=== PATIENT | female | born 1995 | race Caucasian/White ===

== ENCOUNTER 2021-02-26 10:51 | Emergency (ER) | payer OTHER, SELFPAY ==
--- NOTE | ~2021-02-26 | US_ITS ---
EXAMINATION: US PELVIC AND TRANSVAGINAL US PELVIC OVARIAN DOPPLER CLINICAL INFORMATION: 25-year-old female with pelvic pain. Evaluate for ovarian torsion. Right-sided pain. History of Mirena IUD placement in 2017. The last menstrual period was from 02/12/2021 through 02/17/2021. Prior section. COMPARISON: None TECHNIQUE: Ultrasound of the pelvis is performed using both transabdominal and transvaginal transducers along with Doppler. Transvaginal imaging is performed in order to better are visualize and evaluate the ovaries. FINDINGS: Uterus: The anteflexed, anteverted uterus measures 6.2 x 3.7 x 5.4 cm (cervix to fundus x AP x transverse dimensions). The myometrial echotexture is normal. No evidence of leiomyoma. The endometrium measures up to 0.8 cm AP and has normal echotexture. The contraceptive device is positioned within the lower uterine segment and endocervical canal. The proximal tip of the device is located approximately 2.5 cm from the upper margin of the fundal endometrium. Adnexa: The ovaries have normal size and echotexture. The right ovary measures 4.1 x 2.8 x 2.6 cm, volume of 15.6 mL. It has a dominant follicle that measures up to 2.3 cm. The left ovary measures 3.1 x 1.9 x 1.6 cm, volume of 5 mL. Color Doppler images with spectral waveforms show presence of normal arterial and venous flow within each ovary. Free fluid: Small, physiologic amount of free fluid is seen. US/US pelvic ovarian doppler IMPRESSION: * The ovaries are normal. No ovarian mass or torsion. * The IUD is relatively low in position. It is seen within the lower uterine segment and endocervical canal.
--- NOTE | ~2021-02-26 | US_ITS ---
EXAMINATION: US PELVIC AND TRANSVAGINAL US PELVIC OVARIAN DOPPLER CLINICAL INFORMATION: 25-year-old female with pelvic pain. Evaluate for ovarian torsion. Right-sided pain. History of Mirena IUD placement in 2017. The last menstrual period was from 02/12/2021 through 02/17/2021. Prior section. COMPARISON: None TECHNIQUE: Ultrasound of the pelvis is performed using both transabdominal and transvaginal transducers along with Doppler. Transvaginal imaging is performed in order to better are visualize and evaluate the ovaries. FINDINGS: Uterus: The anteflexed, anteverted uterus measures 6.2 x 3.7 x 5.4 cm (cervix to fundus x AP x transverse dimensions). The myometrial echotexture is normal. No evidence of leiomyoma. The endometrium measures up to 0.8 cm AP and has normal echotexture. The contraceptive device is positioned within the lower uterine segment and endocervical canal. The proximal tip of the device is located approximately 2.5 cm from the upper margin of the fundal endometrium. Adnexa: The ovaries have normal size and echotexture. The right ovary measures 4.1 x 2.8 x 2.6 cm, volume of 15.6 mL. It has a dominant follicle that measures up to 2.3 cm. The left ovary measures 3.1 x 1.9 x 1.6 cm, volume of 5 mL. Color Doppler images with spectral waveforms show presence of normal arterial and venous flow within each ovary. Free fluid: Small, physiologic amount of free fluid is seen. US/US pelvic and transvaginal IMPRESSION: * The ovaries are normal. No ovarian mass or torsion. * The IUD is relatively low in position. It is seen within the lower uterine segment and endocervical canal.
[2021-02-26 11:34] VITALS: BP 120/73; PULSE 58; RESP 16; TEMP 36.7; O2SAT 98; BMI 20.6
--- NOTE | 2021-02-26 12:19 | ED.ABDPAIN ---
HPI - Abdominal Pain General Chief Complaint: Abdominal Pain <RONALD Jensen - Last Filed: 02/26/21 14:46> Stated Complaint: ABD PAIN <RONALD Jensen - Last Filed: 02/26/21 14:46> Time Seen by Provider: 02/26/21 12:12 <RONALD Jensen Last Filed: 02/26/21 14:46> Source: patient <RONALD Jensen - Last Filed: 02/26/21 14:46> Mode of arrival: ambulatory <RONALD Jensen - Last Filed: 02/26/21 14:46> Limitations: no limitations <RONALD Jensen Last Filed: 02/26/21 14:46> History of Present Illness HPI narrative: 25 y/o female presenting with right sided pelvic pain on/off for the last 2-3 months but acutely worsened this morning. She reports pain is severe and cramping, located below her scar. She had a Mirena placed in Apr 2017 and is worried it may have migrated. She last had her menstrual period 02/11-02/17. Since Mirena placement her menses has been heavy and regular. She denies chance of . She denies vaginal discharge, fever, chills, N/V/D. She states when she went to get up out of bed her pain was so severe she collapsed to the ground and cried in pain. <RONALD Jensen - Last Filed: 02/26/21 14:46> MD elicited complaint: abdominal pain <RONALD Jensen - Last Filed: 02/26/21 14:46> Pertinent past history: none <RONALD Jensen - Last Filed: 02/26/21 14:46> Onset (ago): hour(s) <RONALD Jensen - Last Filed: 02/26/21 14:46> Pain Consistency: intermittent <RONALD Jensen Last Filed: 02/26/21 14:46> Location: suprapubic and pelvis <RONALD Jensen - Last Filed: 02/26/21 14:46> Severity: moderate <RONALD Jensen - Last Filed: 02/26/21 14:46> Pain scale (0-10): 7 <RONALD Jensen - Last Filed: 02/26/21 14:46> Quality: stabbing and aching <RONALD Jensen - Last Filed: 02/26/21 14:46> Radiation: none <RONALD Jensen - Last Filed: 02/26/21 14:46> Migration to: no migration <RONALD Jensen - Last Filed: 02/26/21 14:46> Exacerbating factors: movement <RONALD Jensen - Last Filed: 02/26/21 14:46> Relieving factors: nothing <RONALD Jensen - Last Filed: 02/26/21 14:46> Context: history of similar episodes <RONALD Jensen - Last Filed: 02/26/21 14:46> Associated symptoms: denies other symptoms <RONALD Jensen - Last Filed: 02/26/21 14:46> Related Data Date of Last Menstrual Period: 02/11/21 <RONALD Jensen - Last Filed: 02/26/21 14:46> Patient : No <RONALD Jensen Last Filed: 02/26/21 14:46> Allergies/Adverse Reactions: Allergies Allergy/AdvReac Type Severity Reaction Status Date / Time No Known Allergies Allergy Verified 02/26/21 11:34 <RONALD Jensen - Last Filed: 02/26/21 14:46> Review of Systems Review of Systems Constitutional: No Fever, No Chills ENT/Mouth: No sore throat, No Rhinorrhea, No Swallowing Difficulty Cardiovascular: No Chest Pain, No SOB, No Orthopnea, No Edema Respiratory: No Cough, No Sputum, No Wheezing, No dyspnea Gastrointestinal: No Nausea, No Vomiting, No Diarrhea, + abdominal Pain Genitourinary: No Dysuria, No Urinary Frequency, No Hematuria Musculoskeletal: No joint pain, No Myalgias Skin: No Skin Lesions, No rash Neuro: No Weakness, No Numbness, No Dizziness, No Headache Heme/Lymph: No Bruising, No Lymphadenopathy <RONALD Jensen Last Filed: 02/26/21 14:46> Physical Exam Vital Signs: Vital Signs: Last Vital Signs Temp 98.1 F 02/26/21 11:34 Pulse 50 02/26/21 14:19 Resp 14 02/26/21 14:19 BP 98/52 L 02/26/21 14:22 Pulse Ox 100 02/26/21 14:19 Body Mass Index 20.6 <RONALD Jensen - Last Filed: 02/26/21 14:46> Vital Signs: Last Vital Signs Temp 98.1 F 02/26/21 11:34 Pulse 50 02/26/21 14:19 Resp 14 02/26/21 14:19 BP 98/52 L 02/26/21 14:22 Pulse Ox 100 02/26/21 14:19 Body Mass Index 20.6 <RONALD Dowd - Last Filed: 02/26/21 16:35> Appearance: Alert. Oriented X3. No acute distress. Eyes: Pupils equal, round and reactive to light. ENT: Pharynx normal. Neck: Normal inspection. Neck supple. CVS: Normal heart rate and rhythm. Pulses normal. Respiratory: No respiratory distress. Breath sounds normal. Abdomen: well healed scar. tenderness below the scar in the right side, no rebound or guarding. pelvic exam deferred for now. Skin: Skin warm and dry. Normal skin color. Normal skin turgor. No rashes. Extremities: No lower extremity edema. Neuro: Oriented X 3. Nonfocal <RONALD Jensen - Last Filed: 02/26/21 14:46> Course Course Course Narrative: 25-year-old female with history of Mirena placement about 4 years ago who is presenting to the ER with right-sided pelvic pain she thinks is related to her Mirena. She just had her menstrual period 2 weeks ago. She denies . Will get blood workup, UA, test, and pelvic ultrasound for further evaluation of her Mirena. She would like to hold off on pelvic exam until the ultrasound is completed and and her pain is better controlled. P.r.n. Vicodin has been ordered and will reassess. <RONALD Jensen - Last Filed: 02/26/21 14:46> MDM - Abdominal Pain Lab Data Result diagrams: : 02/26/21 12:33 02/26/21 12:33 <RONALD Jensen - Last Filed: 02/26/21 14:46> Labs: Lab Results 02/26/21 02/26/21 02/26/21 Range/Units 12:33 12:33 14:21 WBC 10.4 (4.8-10.8) X10*3/uL RBC 4.14 L (4.20-5.50) X10*6/uL Hgb 12.4 (12.0-16.0) g/dl Hct 37.6 (37-47) % MCV 90.8 (80-98) fL MCH 30.0 (27.0-33.0) pg MCHC 33.0 (31.0-35.0) g/dl RDW 12.0 (11.0-16.0) % Plt Count 214 (160-400) X10*3/uL MPV 10.0 (9.4-12.3) fL Immature Gran % (Auto) 0.1 (0.0-0.4) % Neut % (Auto) 67.0 (45-73) % Lymph % (Auto) 24.3 (20-40) % [place] % (Auto) 6.4 (2-11) % Eos % (Auto) 2.0 (0-4) % Baso % (Auto) 0.2 (0-2) % Lymph # (Auto) 2.5 (1.2-4.9) X10*3/uL [place] # (Auto) 0.7 (0.1-1.2) X10*3/uL Eos # (Auto) 0.2 (0.0-0.4) X10*3/uL Baso # (Auto) 0.0 (0.0-0.2) X10*3/uL Abs Immat Gran (auto) 0.01 (0.00-0.03) X10*3/uL Absolute Neuts (auto) 7.0 (2.0-8.3) X10*3/uL Absolute Nucleated RBC 0.000 (0.0-0.012) X10*3/uL Nucleated RBC % (auto) 0.0 (0.0-0.2) /100WBC Sodium 140 (135-145) mmol/L Potassium 4.3 (3.3-5.1) mmol/L Chloride 107 (96-108) mmol/L Carbon Dioxide 27 (22-29) mmol/L Anion Gap 10 L (12-20) BUN 10 (9-16) mg/dL Creatinine 0.73 (0.5-1.4) mg/dL Estim Creat Clear Calc 102.8 Estimated GFR > 60 Random Glucose 98 (60-115) mg/dL Calcium 9.2 (8.4-10.2) mg/dL Magnesium 2.1 (1.6-2.6) mg/dL Total Bilirubin 0.9 (0.0-1.0) mg/dL Direct Bilirubin 0.4 (0.0-0.5) mg/dL AST 16 (5-31) U/L ALT 9 (0-31) U/L Alkaline Phosphatase 48 (39-117) U/L Total Protein 6.6 (6.5-8.0) g/dL Albumin 4.4 (3.5-5.0) g/dL Urine Color YELLOW Urine Appearance HAZY Urine pH 6.0 (5.0-8.0) Ur Specific [place] >= 1.030 H (1.005-1.025) Urine Protein 1+ H (NEG-TRACE) MG/DL Urine Glucose (UA) NEG (NEG) MG/DL Urine Ketones 5 (NEG) MG/DL Urine Blood NEG (NEG) Urine Nitrite NEG (NEG) Ur Leukocyte Esterase 1+ H (NEG) Urine RBC 0-2 (0) /HPF Urine WBC 5-9 H (0-4) /HPF Ur Squamous Epith Cells 3+ /LPF Urine Bacteria NONE /LPF Urine Mucus 3+ /LPF Urine Test (NEGATIVE) 02/26/21 Range/Units 14:21 WBC (4.8-10.8) X10*3/uL RBC (4.20-5.50) X10*6/uL Hgb (12.0-16.0) g/dl Hct (37-47) % MCV (80-98) fL MCH (27.0-33.0) pg MCHC (31.0-35.0) g/dl RDW (11.0-16.0) % Plt Count (160-400) X10*3/uL MPV (9.4-12.3) fL Immature Gran % (Auto) (0.0-0.4) % Neut % (Auto) (45-73) % Lymph % (Auto) (20-40) % [place] % (Auto) (2-11) % Eos % (Auto) (0-4) % Baso % (Auto) (0-2) % Lymph # (Auto) (1.2-4.9) X10*3/uL [place] # (Auto) (0.1-1.2) X10*3/uL Eos # (Auto) (0.0-0.4) X10*3/uL Baso # (Auto) (0.0-0.2) X10*3/uL Abs Immat Gran (auto) (0.00-0.03) X10*3/uL Absolute Neuts (auto) (2.0-8.3) X10*3/uL Absolute Nucleated RBC (0.0-0.012) X10*3/uL Nucleated RBC % (auto) (0.0-0.2) /100WBC Sodium (135-145) mmol/L Potassium (3.3-5.1) mmol/L Chloride (96-108) mmol/L Carbon Dioxide (22-29) mmol/L Anion Gap (12-20) BUN (9-16) mg/dL Creatinine (0.5-1.4) mg/dL Estim Creat Clear Calc Estimated GFR Random Glucose (60-115) mg/dL Calcium (8.4-10.2) mg/dL Magnesium (1.6-2.6) mg/dL Total Bilirubin (0.0-1.0) mg/dL Direct Bilirubin (0.0-0.5) mg/dL AST (5-31) U/L ALT (0-31) U/L Alkaline Phosphatase (39-117) U/L Total Protein (6.5-8.0) g/dL Albumin (3.5-5.0) g/dL Urine Color Urine Appearance Urine pH (5.0-8.0) Ur Specific [place] (1.005-1.025) Urine Protein (NEG-TRACE) MG/DL Urine Glucose (UA) (NEG) MG/DL Urine Ketones (NEG) MG/DL Urine Blood (NEG) Urine Nitrite (NEG) Ur Leukocyte Esterase (NEG) Urine RBC (0) /HPF Urine WBC (0-4) /HPF Ur Squamous Epith Cells /LPF Urine Bacteria /LPF Urine Mucus /LPF Urine Test NEGATIVE (NEGATIVE) <RONALD Jensen - Last Filed: 02/26/21 14:46> Lab Results 02/26/21 02/26/21 02/26/21 Range/Units 12:33 12:33 14:21 WBC 10.4 (4.8-10.8) X10*3/uL RBC 4.14 L (4.20-5.50) X10*6/uL Hgb 12.4 (12.0-16.0) g/dl Hct 37.6 (37-47) % MCV 90.8 (80-98) fL MCH 30.0 (27.0-33.0) pg MCHC 33.0 (31.0-35.0) g/dl RDW 12.0 (11.0-16.0) % Plt Count 214 (160-400) X10*3/uL MPV 10.0 (9.4-12.3) fL Immature Gran % (Auto) 0.1 (0.0-0.4) % Neut % (Auto) 67.0 (45-73) % Lymph % (Auto) 24.3 (20-40) % [place] % (Auto) 6.4 (2-11) % Eos % (Auto) 2.0 (0-4) % Baso % (Auto) 0.2 (0-2) % Lymph # (Auto) 2.5 (1.2-4.9) X10*3/uL [place] # (Auto) 0.7 (0.1-1.2) X10*3/uL Eos # (Auto) 0.2 (0.0-0.4) X10*3/uL Baso # (Auto) 0.0 (0.0-0.2) X10*3/uL Abs Immat Gran (auto) 0.01 (0.00-0.03) X10*3/uL Absolute Neuts (auto) 7.0 (2.0-8.3) X10*3/uL Absolute Nucleated RBC 0.000 (0.0-0.012) X10*3/uL Nucleated RBC % (auto) 0.0 (0.0-0.2) /100WBC Sodium 140 (135-145) mmol/L Potassium 4.3 (3.3-5.1) mmol/L Chloride 107 (96-108) mmol/L Carbon Dioxide 27 (22-29) mmol/L Anion Gap 10 L (12-20) BUN 10 (9-16) mg/dL Creatinine 0.73 (0.5-1.4) mg/dL Estim Creat Clear Calc 102.8 Estimated GFR > 60 Random Glucose 98 (60-115) mg/dL Calcium 9.2 (8.4-10.2) mg/dL Magnesium 2.1 (1.6-2.6) mg/dL Total Bilirubin 0.9 (0.0-1.0) mg/dL Direct Bilirubin 0.4 (0.0-0.5) mg/dL AST 16 (5-31) U/L ALT 9 (0-31) U/L Alkaline Phosphatase 48 (39-117) U/L Total Protein 6.6 (6.5-8.0) g/dL Albumin 4.4 (3.5-5.0) g/dL Urine Color YELLOW Urine Appearance HAZY Urine pH 6.0 (5.0-8.0) Ur Specific [place] >= 1.030 H (1.005-1.025) Urine Protein 1+ H (NEG-TRACE) MG/DL Urine Glucose (UA) NEG (NEG) MG/DL Urine Ketones 5 (NEG) MG/DL Urine Blood NEG (NEG) Urine Nitrite NEG (NEG) Ur Leukocyte Esterase 1+ H (NEG) Urine RBC 0-2 (0) /HPF Urine WBC 5-9 H (0-4) /HPF Ur Squamous Epith Cells 3+ /LPF Urine Bacteria NONE /LPF Urine Mucus 3+ /LPF Urine Test (NEGATIVE) 02/26/21 Range/Units 14:21 WBC (4.8-10.8) X10*3/uL RBC (4.20-5.50) X10*6/uL Hgb (12.0-16.0) g/dl Hct (37-47) % MCV (80-98) fL MCH (27.0-33.0) pg MCHC (31.0-35.0) g/dl RDW (11.0-16.0) % Plt Count (160-400) X10*3/uL MPV (9.4-12.3) fL Immature Gran % (Auto) (0.0-0.4) % Neut % (Auto) (45-73) % Lymph % (Auto) (20-40) % [place] % (Auto) (2-11) % Eos % (Auto) (0-4) % Baso % (Auto) (0-2) % Lymph # (Auto) (1.2-4.9) X10*3/uL [place] # (Auto) (0.1-1.2) X10*3/uL Eos # (Auto) (0.0-0.4) X10*3/uL Baso # (Auto) (0.0-0.2) X10*3/uL Abs Immat Gran (auto) (0.00-0.03) X10*3/uL Absolute Neuts (auto) (2.0-8.3) X10*3/uL Absolute Nucleated RBC (0.0-0.012) X10*3/uL Nucleated RBC % (auto) (0.0-0.2) /100WBC Sodium (135-145) mmol/L Potassium (3.3-5.1) mmol/L Chloride (96-108) mmol/L Carbon Dioxide (22-29) mmol/L Anion Gap (12-20) BUN (9-16) mg/dL Creatinine (0.5-1.4) mg/dL Estim Creat Clear Calc Estimated GFR Random Glucose (60-115) mg/dL Calcium (8.4-10.2) mg/dL Magnesium (1.6-2.6) mg/dL Total Bilirubin (0.0-1.0) mg/dL Direct Bilirubin (0.0-0.5) mg/dL AST (5-31) U/L ALT (0-31) U/L Alkaline Phosphatase (39-117) U/L Total Protein (6.5-8.0) g/dL Albumin (3.5-5.0) g/dL Urine Color Urine Appearance Urine pH (5.0-8.0) Ur Specific [place] (1.005-1.025) Urine Protein (NEG-TRACE) MG/DL Urine Glucose (UA) (NEG) MG/DL Urine Ketones (NEG) MG/DL Urine Blood (NEG) Urine Nitrite (NEG) Ur Leukocyte Esterase (NEG) Urine RBC (0) /HPF Urine WBC (0-4) /HPF Ur Squamous Epith Cells /LPF Urine Bacteria /LPF Urine Mucus /LPF Urine Test NEGATIVE (NEGATIVE) <RONALD Dowd - Last Filed: 02/26/21 16:35> Critical Care Time Critical Care Time Critical Care Time: No <RONALD Jensen - Last Filed: 02/26/21 14:46> Discharge Plan Discharge Clinical Impression: Pelvic pain <RONALD Jensen - Last Filed: 02/26/21 14:46> Patient Disposition: Home, Self-Care <RONALD Jensen - Last Filed: 02/26/21 14:46> [facility] Past Medical History Medical History: Medical History (Updated 02/26/21 @ 14:46 by RONALD Jensen) Asthma Muscular dystrophy <RONALD Jensen - Last Filed: 02/26/21 14:46> Date of Last Menstrual Period: 02/11/21 <RONALD Jensen - Last Filed: 02/26/21 14:46> Social History Social History: Social History Advance Directives: No Advance Directives Information Provided: Yes Patient : No <RONALD Jensen - Last Filed: 02/26/21 14:46>
[2021-02-26] MEDS: HYDROcodone Bit/Acetam 5/325 TABLET 1 TAB PO (12:34)
[2021-02-26 12:38] LABS: MANUAL DIFF FLAG NO
[2021-02-26 12:41] LABS: Basophils Percent Auto 0.2 % (0-2); Eosinophils Absolute Auto 0.2 X10*3/uL (0.0-0.4); Hematocrit 37.6 % (37-47); Hemoglobin 12.4 g/dl (12.0-16.0); Imm Gran Abs Auto 0.01 X10*3/uL (0.00-0.03); Imm Gran Pct Auto 0.1 % (0.0-0.4); Lymphocytes Absolute Auto 2.5 X10*3/uL (1.2-4.9); Lymphocytes Percent Auto 24.3 % (20-40); Mean Corpuscular Volume 90.8 fL (80-98); Monocytes Absolute Auto 0.7 X10*3/uL (0.1-1.2); Monocytes Percent Auto 6.4 % (2-11); Platelet Count 214 X10*3/uL (160-400); Red Blood Count 4.14 X10*6/uL (4.20-5.50); White Blood Count 10.4 X10*3/uL (4.8-10.8)
[2021-02-26 12:59] LABS: Alanine Aminotransferase 9 U/L (0-31); Albumin Level 4.4 g/dL (3.5-5.0); Alkaline Phosphatase 48 U/L (39-117); Anion Gap 10 (12-20); Aspartate Amino Transferase 16 U/L (5-31); Bilirubin Direct 0.4 mg/dL (0.0-0.5); Bilirubin Total 0.9 mg/dL (0.0-1.0); Blood Urea Nitrogen 10 mg/dL (9-16); Calcium 9.2 mg/dL (8.4-10.2); Carbon Dioxide 27 mmol/L (22-29); Chloride 107 mmol/L (96-108); Creatinine Clr Calc Pharmacy 102.8; Estimated Glomerular Filt Rate > 60; Glucose Random 98 mg/dL (60-115); Magnesium 2.1 mg/dL (1.6-2.6); Potassium 4.3 mmol/L (3.3-5.1); Sodium 140 mmol/L (135-145); Total Protein 6.6 g/dL (6.5-8.0)
[2021-02-26 14:19] VITALS: PULSE 50; RESP 14; O2SAT 100
[2021-02-26 14:22] VITALS: BP 98/52
[2021-02-26 14:29] LABS: Appearance Urine HAZY; Color Urine YELLOW; Glucose Urine UA NEG (NEG); Leukocyte Esterase Urine 1+ (NEG); Nitrite Urine NEG (NEG); Specific Gravity - Urine >= 1.030 (1.005-1.025); UACC Culture Trigger YES; Urine Blood NEG (NEG); Urine Ketones 5 MG/DL (NEG); Urine Protein 1+ MG/DL (NEG-TRACE)
[2021-02-26 14:43] LABS: UPreg QC Valid YES; Urine Pregnancy NEGATIVE (NEGATIVE)
[2021-02-26 14:46] LABS: Mucus Urine 3+ /LPF; RBC Urine 0-2 /HPF (0); Squamous Epithelial Cell Urine 3+ /LPF
[2021-02-26] MEDS: Ibuprofen 800 MG TABLET PO (17:07)
== END 2021-02-26 17:09 | disposition home or self-care (01) ==
PROVIDERS: Physician Assistant; Emergency Provider Emergency Medicine
DX: R10.2 Pelvic and perineal pain (principal); Z97.5 Presence of (intrauterine) contraceptive device
CPT/HCPCS: 36415; 58301; 76830; 76856; 80048; 80076; 81001; 81025; 83735; 85025; 87086; 93975; 99285

== ENCOUNTER 2021-07-10 14:26 | Emergency (ER) | payer OTHER, SELFPAY ==
[2021-07-10 15:44] VITALS: BP 125/80; PULSE 68; RESP 18; TEMP 36.8; O2SAT 99; BMI 24.6
--- NOTE | 2021-07-10 16:47 | ED_ITS ---
HPI - Ear Problem General Chief complaint: Ear Problems Stated complaint: Earache Time Seen by Provider: 07/10/21 16:47 History of Present Illness HPI Narrative: Patient complains of left ear pain worse the past 24 hours Two weeks ago she was prescribed amoxicillin for an ear infection but did not remember to take it so has not been taking it Since 2 days ago the left ear pain is increasing, no fever no chills no headache no other illness or complaint Related Data Previous Rx's Medication Instructions Recorded acetaminophen 500 mg tablet 1,000 mg PO QID PRN #14 tab 02/26/21 (Tylenol Extra Strength) ibuprofen 800 mg tablet 800 mg PO Q8H PRN #14 tab 02/26/21 amoxicillin 500 mg-potassium 1 tab PO Q8H 7 Days #21 tab 07/10/21 clavulanate 125 mg tablet (Augmentin) ciprofloxacin 0.3 %-dexamethasone 4 drp OTIC (EARS) BID 7 Days #7.5 07/10/21 0.1 % ear drops,suspension ml (Ciprodex) Allergies Allergy/AdvReac Type Severity Reaction Status Date / Time No Known Allergies Allergy Verified 07/10/21 15:44 Review of Systems Review of Systems: Positive for ear pain Negatives are no fever no chills no dizziness no weakness no headache no neck pain no chest pain no shortness of breath no runny nose no cough no sore throat no abdominal pain no nausea vomiting no skin rash no numbness weakness or tingling Yes all other systems are reviewed and are negative [facility] Past Medical History Source: nursing notes reviewed Medical History (Updated 07/11/21 @ 00:01 by Benton Miles) Asthma Muscular dystrophy Social History Social History Advance Directives: No Advance Directives Information Provided: No Patient : No Physical Exam Vital Signs: Vital Signs: Last Vital Signs Temp 98.2 F 07/10/21 15:44 Pulse 68 07/10/21 15:44 Resp 18 07/10/21 15:44 BP 125/80 07/10/21 15:44 Pulse Ox 99 07/10/21 15:44 BMI result Body Mass Index 24.6 General appearance no acute distress The pupils equal round reactive to light extraocular motions are intact The ear exam the left ear the canal was narrowed and the tympanic membrane was red as well there was some discomfort with movement of the auricle The right ear had a patent canal but was with a mildly red tympanic membrane The sinuses were nontender The pharynx is clear The neck is supple Chest clear to auscultation bilateral Heart no murmur Extremities full range of motion x4 Course Course Course Narrative: Patient with likely both left otitis externa and otitis media is treated with antibiotic and ear drops and will follow with primary doctor Discharge Plan Discharge Clinical Impression: Otitis externa, Otitis media Patient Disposition: Home, Self-Care Additional Instructions: The ear canal now was red and mildly inflamed, the ear drum was read as well so you may have both an ear canal and and ear infection Use the drops as directed for the ear canal and the Augmentin which is stronger than amoxicillin for the ear Follow with primary doctor, if pain continues may need a referral to a specialist Return any time any worse condition or any concerns Prescriptions: New amoxicillin-pot clavulanate [Augmentin] 500-125 mg tablet 1 tab PO Q8H 7 Days Qty: 21 0RF ciprofloxacin-dexamethasone [Ciprodex] 0.3-0.1 % drops,suspension 4 drp otic (ears) BID 7 Days Qty: 7.5 0RF No Action ibuprofen 800 mg tablet 800 mg PO Q8H PRN (Reason: pain) Qty: 14 0RF acetaminophen [Tylenol Extra Strength] 500 mg tablet 1,000 mg PO QID PRN (Reason: fever or pain) Qty: 14 0RF Interventions: ED Discharge Assessment Last Done: 07/10/21 17:17 Discharge Date/Time: 07/10/21 17:19
[2021-07-10] MEDS: Acetaminophen 325 MG TABLET 975 MG PO (17:02)
[2021-07-10] MEDS: Ibuprofen 800 MG TABLET PO (17:03)
[2021-07-10] MEDS: Amoxicillin/Potassium Clav 875 MG TABLET PO (17:03)
== END 2021-07-10 17:19 | disposition home or self-care (01) ==
PROVIDERS: Emergency Provider Emergency Medicine Emergency Medical Services; PCP Internal Medicine
DX: H60.92 Unspecified otitis externa, left ear (principal); H66.92 Otitis media, unspecified, left ear; H92.02 Otalgia, left ear; Z79.899 Other long term (current) drug therapy
CPT/HCPCS: 99283

== ENCOUNTER 2022-02-05 09:37 | Emergency (ER) | payer OTHER, SELFPAY ==
--- NOTE | ~2022-02-05 | XR_ITS ---
EXAMINATION: CHEST AND THORACIC SPINE X-RAY CLINICAL INFORMATION: Posterior chest/scapula/back pain COMPARISON: None TECHNIQUE: 2 views of the chest. 3 views of the thoracic spine including swimmer's view FINDINGS: Chest: The cardiac and mediastinal contours are normal. The lungs are clear. There is no pleural effusion or pneumothorax. Bony structures are normal. Thoracic spine: Bone alignment is normal. No fracture or dislocation is seen. Disc spaces are normal. Paraspinal soft tissues are normal. XR/XR chest 2V IMPRESSION: Unremarkable exam.
--- NOTE | ~2022-02-05 | XR_ITS ---
EXAMINATION: CHEST AND THORACIC SPINE X-RAY CLINICAL INFORMATION: Posterior chest/scapula/back pain COMPARISON: None TECHNIQUE: 2 views of the chest. 3 views of the thoracic spine including swimmer's view FINDINGS: Chest: The cardiac and mediastinal contours are normal. The lungs are clear. There is no pleural effusion or pneumothorax. Bony structures are normal. Thoracic spine: Bone alignment is normal. No fracture or dislocation is seen. Disc spaces are normal. Paraspinal soft tissues are normal. XR/XR thoracic spine 3V IMPRESSION: Unremarkable exam.
[2022-02-05 09:51] VITALS: BP 111/74; BP 151/62; PULSE 65; PULSE 66; RESP 18; TEMP 36.7; O2SAT 97; O2SAT 99; BMI 24.6
--- NOTE | 2022-02-05 10:08 | ECG_ITS ---
Test Reason : CP Blood Pressure : / mmHG Vent. Rate : 059 BPM Atrial Rate : 059 BPM P-R Int : 132 ms QRS Dur : 080 ms QT Int : 436 ms P-R-T Axes : 025 050 062 degrees QTc Int : 431 ms Sinus bradycardia with marked sinus arrhythmia Otherwise normal ECG No previous ECGs available Referred By: Brian Nesbitt Electronically Signed By:DAVID REED
[2022-02-05] MEDS: Cyclobenzaprine HCl 10 MG TABLET PO (10:22)
[2022-02-05] MEDS: Ketorolac Tromethamine 30 MG/ML VIAL IVPUSH (10:24)
--- NOTE | 2022-02-05 10:40 | ED.GENADULT ---
HPI - General Adult General Chief complaint: Back Pain/Injury Stated complaint: LT SIDED BACK AND SHOULDER PAIN Time Seen by Provider: 02/05/22 10:02 Source: patient Mode of arrival: ambulatory Limitations: no limitations History of Present Illness HPI narrative: 26-year-old female presents to ED for left upper back posterior scapular pain with pleurisy and is worse on movement. Patient was states she was sleeping on her left side and she woke up with sudden upper left back pain as worse on movement. Patient denies any recent trauma or falling on the ground. Denies waking up from the floor. Patient denies any recent strenuous activity or heavy lifting. Once again patient denies any trauma, left lower extremity, fever, chills, coughing up blood, headache, dizziness. Patient states history of muscle dystrophy. Patient denies being on any control or recent long travel recent surgery. Denies any history of DVT. Denies any trauma to the back. Patient denies any hi fall. Once again patient woke up with pain Related Data Previous Rx's Medication Instructions Recorded acetaminophen 500 mg tablet 1,000 mg PO QID PRN fever or pain 02/26/21 (Tylenol Extra Strength) #14 tabs ibuprofen 800 mg tablet 800 mg PO Q8H PRN pain #14 tabs 02/26/21 amoxicillin 500 mg-potassium 1 tab PO Q8H 7 days #21 tabs 07/10/21 clavulanate 125 mg tablet (Augmentin) ciprofloxacin 0.3 %-dexamethasone 4 drp otic (ears) BID 7 days #7.5 07/10/21 0.1 % ear drops,suspension mL (Ciprodex) cyclobenzaprine 10 mg tablet 10 mg PO TID PRN muscle spasm 5 02/05/22 days #15 tabs ketorolac 10 mg tablet 10 mg PO QID PRN pain 5 days #20 02/05/22 tabs Allergies Allergy/AdvReac Type Severity Reaction Status Date / Time No Known Allergies Allergy Verified 07/10/21 15:44 Review of Systems Review of Systems: left upper back pain and pleurisy Yes all other systems are reviewed and are negative [facility] Past Medical History Medical History (Updated 02/05/22 @ 14:54 by RONALD Drake) Asthma Muscular dystrophy Social History Social History Advance Directives: No Advance Directives Information Provided: Yes Physical Exam ED Vital Signs: Vital Signs - 24 hr 02/05/22 09:51 02/05/22 15:32 Temperature 98.0 F Pulse Rate 65 59 Respiratory Rate 18 16 Blood Pressure 111/74 121/72 Pulse Oximetry 97 97 Oxygen Delivery Method Room Air Room Air BMI result Body Mass Index 24.6 Const General: cooperative, healthy appearing, comfortable, no acute distress, well developed, alert, awake, Physically active and patient obtunded Orientation/consciousness: oriented to person, oriented to place, oriented to time, patient oriented x3 and patient obtunded HENMT Head: Yes normal to inspection, Yes No palpable skull fracture present, Yes normocephalic, Yes atraumatic and No abrasion Eyes General: appearance normal, both eyes and all related structures Neck Neck: Yes normal visual inspection, Yes full ROM, Yes no lymphadenopathy, Yes no meningeal signs, Yes trachea midline, Yes supple, No anterior neck swelling and No tender Chest Chest palpation & inspection: normal inspection of the chest and normal palpation of entire chest wall Resp Effort & Inspection: normal respiratory effort and able to speak in complete sentences Auscultation: clear to auscultation bilaterally Cardio Jugular venous distension: no JVD Heart sounds: S1 normal heart sound present and S2 normal heart sound present GI Inspection: Yes normal to inspection Palpation (GI): Soft to palpation, not firm, nontender, no guarding and not rigid General: No CVA tenderness and Yes no CVA tenderness Back/Spine/Pelvis Back: no CVA tenderness, No CVA tenderness and No back tenderness Back/spine/pelvis image: 1. Tenderness on palpation. Negative for any vesicular or erythematous rash. Positive for pain on range of motion. Negative for ecchymosis, crepitus, or deformity. Skin General skin exam: no rashes or lesions noted and elasticity normal Neuro General: oriented to person, oriented to place, oriented to time, patient oriented x3, gait normal, tone normal, moves all extremities, no meningeal signs, no focal motor deficits and patient obtunded Cranial nerves: Yes CN's II-XII intact bilaterally Extrem Other: Lower extremity negative for swelling, pitting edema, calf tenderness General: Yes normal to inspection and Yes full ROM Psych Appearance: grossly normal, well kempt and not disheveled Course Course Course Narrative: Due to pleurisy an atypical presentation patient had chest x-ray, EKG, troponin, and D-dimer. History physical exam indicate more muscle spasm. Patient received fentanyl gabapentin in the ambulance. Will order Toradol and muscle relaxer Reevaluation(s) Reevaluation #1: Patient's D-dimer negative. Perc score 0. Chest x-ray came back normal. EKG negative STEMI. Two troponin is negative. X-ray negative for fracture. Patient states pain resolved after receiving Toradol and muscle relaxer. Patient states no longer has pain on range of motion walking around the ED smiling. She UA shows plenty of blood and white blood cell count. Patient does not have any urinary symptoms flank pain or abdominal pain. Patient states she is on her menstruation with usual really heavy flow. Time: 02:51 Medical Decision Making [facility] Narrative Medical decision making narrative: back spasm Lab Data Result diagrams: 02/05/22 11:04 02/05/22 11:04 Labs: Lab Results 02/05/22 02/05/22 02/05/22 Range/Units 10:28 10:28 11:04 WBC 10.4 (4.8-10.8) X10*3/uL RBC 4.48 (4.20-5.50) X10*6/uL Hgb 13.1 (12.0-16.0) g/dl Hct 39.6 (37.0-47.0) % MCV 88.4 (80.0-98.0) fL MCH 29.2 (27.0-33.0) pg MCHC 33.1 (31.0-35.0) g/dl RDW 12.5 (11.0-16.0) % Plt Count 264 (160-400) X10*3/uL MPV 10.1 (9.4-12.3) fL Immature Gran % (Auto) 0.4 (0.0-0.4) % Neut % (Auto) 67.0 (45-73) % Lymph % (Auto) 24.1 (20-40) % Mccone % (Auto) 5.8 (2-11) % Eos % (Auto) 2.4 (0-4) % Baso % (Auto) 0.3 (0-2) % Lymph # (Auto) 2.5 (1.2-4.9) X10*3/uL Mccone # (Auto) 0.6 (0.1-1.2) X10*3/uL Eos # (Auto) 0.3 (0.0-0.4) X10*3/uL Baso # (Auto) 0.0 (0.0-0.2) X10*3/uL Abs Immat Gran (auto) 0.04 H (0.00-0.03) X10*3/uL Absolute Neuts (auto) 7.0 (2.0-8.3) x10*3/uL Absolute Nucleated RBC 0.000 (0.0-0.012) X10*3/uL Nucleated RBC % (auto) 0.0 (0.0-0.2) /100WBC PT (10.0-13.1) SEC INR (0.9-1.1) APTT (26.0-36.4) SEC D-Dimer High Sensitivty NG/ML Sodium (135-145) mmol/L Potassium (3.3-5.1) mmol/L Chloride (96-108) mmol/L Carbon Dioxide (22-29) mmol/L Anion Gap (12-20) BUN (9-16) mg/dL Creatinine (0.5-1.4) mg/dL Estim Creat Clear Calc Estimated GFR Random Glucose (60-115) mg/dL Calcium (8.4-10.2) mg/dL Total Bilirubin (0.0-1.0) mg/dL AST (5-31) U/L ALT (0-31) U/L Alkaline Phosphatase (39-117) U/L Troponin I High Sens (<3.5-17.0) ng/L Total Protein (6.5-8.0) g/dL Albumin (3.5-5.0) g/dL Beta HCG, Quant mIU/mL Urine Color Dark Yellow Urine Appearance Cloudy Urine pH 6.0 (5.0-9.0) Ur Specific [employer] 1.025 (1.005-1.025) Urine Protein 30 (1+) H (Neg-Trace) mg/dL Urine Glucose (UA) Negative (Negative) mg/dL Urine Ketones Negative (Negative) mg/dL Urine Blood Large (3+) H (Negative) Urine Nitrite Negative (Negative) Ur Leukocyte Esterase Small (1+) H (Negative) Urine RBC 6-10 H (0-2) /HPF Urine WBC 11-20 H (0-5) /HPF Ur Squamous Epith Cells >20 (0-2) /HPF Urine Bacteria 4+ (None Seen) Hyaline Casts 0-2 (0-2) /LPF Urine Test NEGATIVE (NEGATIVE) 02/05/22 02/05/22 02/05/22 Range/Units 11:04 11:04 11:04 WBC (4.8-10.8) X10*3/uL RBC (4.20-5.50) X10*6/uL Hgb (12.0-16.0) g/dl Hct (37.0-47.0) % MCV (80.0-98.0) fL MCH (27.0-33.0) pg MCHC (31.0-35.0) g/dl RDW (11.0-16.0) % Plt Count (160-400) X10*3/uL MPV (9.4-12.3) fL Immature Gran % (Auto) (0.0-0.4) % Neut % (Auto) (45-73) % Lymph % (Auto) (20-40) % Mccone % (Auto) (2-11) % Eos % (Auto) (0-4) % Baso % (Auto) (0-2) % Lymph # (Auto) (1.2-4.9) X10*3/uL Mccone # (Auto) (0.1-1.2) X10*3/uL Eos # (Auto) (0.0-0.4) X10*3/uL Baso # (Auto) (0.0-0.2) X10*3/uL Abs Immat Gran (auto) (0.00-0.03) X10*3/uL Absolute Neuts (auto) (2.0-8.3) x10*3/uL Absolute Nucleated RBC (0.0-0.012) X10*3/uL Nucleated RBC % (auto) (0.0-0.2) /100WBC PT 11.0 (10.0-13.1) SEC INR 1.0 (0.9-1.1) APTT 34.1 (26.0-36.4) SEC D-Dimer High Sensitivty < 150 NG/ML Sodium 139 (135-145) mmol/L Potassium 4.5 (3.3-5.1) mmol/L Chloride 110 H (96-108) mmol/L Carbon Dioxide 19 L (22-29) mmol/L Anion Gap 15 (12-20) BUN 8 L (9-16) mg/dL Creatinine 0.67 (0.5-1.4) mg/dL Estim Creat Clear Calc 112.5 Estimated GFR > 60 Random Glucose 103 (60-115) mg/dL Calcium 8.7 (8.4-10.2) mg/dL Total Bilirubin 0.7 (0.0-1.0) mg/dL AST 17 (5-31) U/L ALT 12 (0-31) U/L Alkaline Phosphatase 72 D (39-117) U/L Troponin I High Sens < 3.5 (<3.5-17.0) ng/L Total Protein 7.1 (6.5-8.0) g/dL Albumin 4.6 (3.5-5.0) g/dL Beta HCG, Quant mIU/mL Urine Color Urine Appearance Urine pH (5.0-9.0) Ur Specific [employer] (1.005-1.025) Urine Protein (Neg-Trace) mg/dL Urine Glucose (UA) (Negative) mg/dL Urine Ketones (Negative) mg/dL Urine Blood (Negative) Urine Nitrite (Negative) Ur Leukocyte Esterase (Negative) Urine RBC (0-2) /HPF Urine WBC (0-5) /HPF Ur Squamous Epith Cells (0-2) /HPF Urine Bacteria (None Seen) Hyaline Casts (0-2) /LPF Urine Test (NEGATIVE) 02/05/22 02/05/22 Range/Units 11:04 13:18 WBC (4.8-10.8) X10*3/uL RBC (4.20-5.50) X10*6/uL Hgb (12.0-16.0) g/dl Hct (37.0-47.0) % MCV (80.0-98.0) fL MCH (27.0-33.0) pg MCHC (31.0-35.0) g/dl RDW (11.0-16.0) % Plt Count (160-400) X10*3/uL MPV (9.4-12.3) fL Immature Gran % (Auto) (0.0-0.4) % Neut % (Auto) (45-73) % Lymph % (Auto) (20-40) % Mccone % (Auto) (2-11) % Eos % (Auto) (0-4) % Baso % (Auto) (0-2) % Lymph # (Auto) (1.2-4.9) X10*3/uL Mccone # (Auto) (0.1-1.2) X10*3/uL Eos # (Auto) (0.0-0.4) X10*3/uL Baso # (Auto) (0.0-0.2) X10*3/uL Abs Immat Gran (auto) (0.00-0.03) X10*3/uL Absolute Neuts (auto) (2.0-8.3) x10*3/uL Absolute Nucleated RBC (0.0-0.012) X10*3/uL Nucleated RBC % (auto) (0.0-0.2) /100WBC PT (10.0-13.1) SEC INR (0.9-1.1) APTT (26.0-36.4) SEC D-Dimer High Sensitivty NG/ML Sodium (135-145) mmol/L Potassium (3.3-5.1) mmol/L Chloride (96-108) mmol/L Carbon Dioxide (22-29) mmol/L Anion Gap (12-20) BUN (9-16) mg/dL Creatinine (0.5-1.4) mg/dL Estim Creat Clear Calc Estimated GFR Random Glucose (60-115) mg/dL Calcium (8.4-10.2) mg/dL Total Bilirubin (0.0-1.0) mg/dL AST (5-31) U/L ALT (0-31) U/L Alkaline Phosphatase (39-117) U/L Troponin I High Sens < 3.5 (<3.5-17.0) ng/L Total Protein (6.5-8.0) g/dL Albumin (3.5-5.0) g/dL Beta HCG, Quant < 2 mIU/mL Urine Color Urine Appearance Urine pH (5.0-9.0) Ur Specific [employer] (1.005-1.025) Urine Protein (Neg-Trace) mg/dL Urine Glucose (UA) (Negative) mg/dL Urine Ketones (Negative) mg/dL Urine Blood (Negative) Urine Nitrite (Negative) Ur Leukocyte Esterase (Negative) Urine RBC (0-2) /HPF Urine WBC (0-5) /HPF Ur Squamous Epith Cells (0-2) /HPF Urine Bacteria (None Seen) Hyaline Casts (0-2) /LPF Urine Test (NEGATIVE) ECG Data Interpretation: Sinus bradycardia. Ventricular rate 59. Pr interval 132. QRS 80. QTC 431. Negative STEMI Discharge Plan Discharge Clinical Impression: Back muscle spasm Patient Disposition: Home, Self-Care Instructions: Muscle Spasm (ED), Back Pain (ED) Additional Instructions: Your blood work, EKG, back x-ray, and chest x-ray came back negative for signs of spinal fracture, heart attack, pneumonia, or risk of blood clot. He will be discharged with pain medication and muscle relaxer. Please follow-up with your primary care provider. Return to the ED immediately for any chest pain, shortness of breath, chest pain on inspiration, worsening back pain, fever, chills, urinary/bowel incontinence, weakness, dizziness, bluish black discoloration on skin, lesions, or any other concerning symptoms. Do not take any other NSAIDS ( motrin, alleve, naproxen, ibuprofen, etc) with toradol Prescriptions: New ketorolac 10 mg tablet 10 mg PO QID PRN (Reason: pain) 5 Days Qty: 20 0RF Rx Instructions: patient received 30mgIV toradol in the ED. take with food cyclobenzaprine 10 mg tablet 10 mg PO TID PRN (Reason: muscle spasm) 5 Days Qty: 15 0RF No Action amoxicillin-pot clavulanate [Augmentin] 500-125 mg tablet 1 tab PO Q8H 7 Days Qty: 21 0RF ciprofloxacin-dexamethasone [Ciprodex] 0.3-0.1 % drops,suspension 4 drp otic (ears) BID 7 Days Qty: 7.5 0RF ibuprofen 800 mg tablet 800 mg PO Q8H PRN (Reason: pain) Qty: 14 0RF acetaminophen [Tylenol Extra Strength] 500 mg tablet 1,000 mg PO QID PRN (Reason: fever or pain) Qty: 14 0RF Stand Alone Forms: Work/School Release Interventions: ED Discharge Assessment Last Done: 02/05/22 15:41 Discharge Date/Time: 02/05/22 15:42 Print Language: Spanish
[2022-02-05 10:53] LABS: Appearance Urine Cloudy; Color Urine Dark Yellow; Glucose Urine UA Negative (Negative); Leukocyte Esterase Urine Small (1+) (Negative); Nitrite Urine Negative (Negative); Specific Gravity - Urine 1.025 (1.005-1.025); UMIC TRIGGER UACC YES; Urine Blood Large (3+) (Negative); Urine Ketones Negative (Negative); Urine Protein 30 (1+) mg/dL (Neg-Trace)
[2022-02-05 10:56] LABS: UPreg QC Valid YES; Urine Pregnancy NEGATIVE (NEGATIVE)
[2022-02-05 10:58] LABS: Bacteria Urine 4+ (None Seen); Hyaline Casts Urine 0-2 /LPF (0-2); Squamous Epithelial Cell Urine >20 /HPF (0-2); UACC Culture Trigger YES
[2022-02-05 11:12] LABS: MANUAL DIFF FLAG NO
[2022-02-05 11:13] LABS: Basophils Percent Auto 0.3 % (0-2); Eosinophils Absolute Auto 0.3 X10*3/uL (0.0-0.4); Eosinophils Percent Auto 2.4 % (0-4); Hematocrit 39.6 % (37.0-47.0); Hemoglobin 13.1 g/dl (12.0-16.0); Imm Gran Abs Auto 0.04 X10*3/uL (0.00-0.03); Imm Gran Pct Auto 0.4 % (0.0-0.4); Lymphocytes Absolute Auto 2.5 X10*3/uL (1.2-4.9); Lymphocytes Percent Auto 24.1 % (20-40); Mean Corpuscular HGB Conc 33.1 g/dl (31.0-35.0); Mean Corpuscular Hemoglobin 29.2 pg (27.0-33.0); Mean Corpuscular Volume 88.4 fL (80.0-98.0); Mean Platelet Volume 10.1 fL (9.4-12.3); Monocytes Absolute Auto 0.6 X10*3/uL (0.1-1.2); Monocytes Percent Auto 5.8 % (2-11); Platelet Count 264 X10*3/uL (160-400); Red Blood Count 4.48 X10*6/uL (4.20-5.50); Red Cell Distribution Width 12.5 % (11.0-16.0); White Blood Count 10.4 X10*3/uL (4.8-10.8)
[2022-02-05 11:23] LABS: Partial Thromboplastin Time 34.1 SEC (26.0-36.4)
[2022-02-05 11:24] LABS: D Dimer High Sensitivity < 150 NG/ML
[2022-02-05 11:29] LABS: Alanine Aminotransferase 12 U/L (0-31); Albumin Level 4.6 g/dL (3.5-5.0); Alkaline Phosphatase 72 U/L (39-117); Anion Gap 15 (12-20); Aspartate Amino Transferase 17 U/L (5-31); Bilirubin Total 0.7 mg/dL (0.0-1.0); Blood Urea Nitrogen 8 mg/dL (9-16); Calcium 8.7 mg/dL (8.4-10.2); Carbon Dioxide 19 mmol/L (22-29); Chloride 110 mmol/L (96-108); Creatinine Clr Calc Pharmacy 112.5; Estimated Glomerular Filt Rate > 60; Glucose Random 103 mg/dL (60-115); Potassium 4.5 mmol/L (3.3-5.1); Sodium 139 mmol/L (135-145); Total Protein 7.1 g/dL (6.5-8.0)
[2022-02-05 11:33] LABS: Troponin-I High Sensitivity < 3.5 ng/L (<3.5-17.0)
[2022-02-05 11:40] LABS: HCG Quantitative < 2 mIU/mL
[2022-02-05 14:07] LABS: Troponin-I High Sensitivity < 3.5 ng/L (<3.5-17.0)
[2022-02-05 15:32] VITALS: BP 121/72; PULSE 59; RESP 16; O2SAT 97
== END 2022-02-05 15:42 | disposition home or self-care (01) ==
PROVIDERS: Physician Assistant; Emergency Provider Internal Medicine; PCP Internal Medicine
DX: R07.89 Other chest pain (principal); M54.50 Low back pain, unspecified; M25.512 Pain in left shoulder; M54.6 Pain in thoracic spine; R00.1 Bradycardia, unspecified; Z79.899 Other long term (current) drug therapy
CPT/HCPCS: 36415; 71046; 72072; 80053; 81001; 81025; 84484; 84702; 85025; 85379; 85610; 85730; 87086; 93005; 96374; 99284; J1885